=== PATIENT | male | born 1970 | race Caucasian/White ===

== ENCOUNTER → 2020-08-17 | Outpatient (CLI) | payer OTHER ==
--- NOTE | 2020-08-18 11:50 | RAD ---
EXAM DESCRIPTION: Knee,Left Complete CLINICAL HISTORY: KNEE PAIN COMPARISON: None. FINDINGS: 4 standing views of the left knee shows no acute fracture or dislocation. Moderate narrowing of the medial and mild narrowing of the lateral tibiofemoral compartment are seen with moderate joint line osteophytes. Small posterior superior and inferior osteophytes of the patella are seen with osteophytes of the femoral condyles. Mild joint space narrowing. Mild increased density in the suprapatellar bursa. IMPRESSION: 3 compartment osteoarthritic changes of the left knee are seen most significant involving the medial tibiofemoral compartment. Suspect small suprapatellar joint effusion. Electronically signed by: Tyrell Wells MD 08/18/2020 11:49 AM CDT
--- NOTE | 2020-08-18 11:51 | RAD ---
EXAM DESCRIPTION: Pelvis CLINICAL HISTORY: HIP PAIN COMPARISON: None. IMPRESSION: Single supine view of the pelvis obtained on 2 radiographs shows no acute fracture, focal bone destruction, or joint dislocation. Mild to moderate joint space narrowing is seen in both hips with sclerotic changes to the superior lateral acetabulum and mild osteophytic ridging of the femoral head right greater than left compatible with moderate osteoarthritic changes. Electronically signed by: Tyrell Wells MD 08/18/2020 11:49 AM CDT
== END ==
LOC: RAD 09:26
PROVIDERS: ATTEND Orthopaedic Surgery
DX: M17.12 Unilateral primary osteoarthritis, left knee (principal); M25.851 Other specified joint disorders, right hip; M25.852 Other specified joint disorders, left hip; M25.751 Osteophyte, right hip; M25.752 Osteophyte, left hip